=== PATIENT | female | born 2000 | race Caucasian/White ===

== ENCOUNTER 2021-08-31 00:12 | Emergency (ER) | payer OTHER ==
[~2021-08-31] VITALS: Ht 172.7 cm; Wt 59.0 kg
[2021-08-31 00:15] VITALS: BP 117/67
[2021-08-31] MEDS ORDERED: ACETAMINOPHEN EXTRA STRENGTH 500 MG TAB PO ONE (00:50)
[2021-08-31] MEDS ORDERED: BACITRACIN OINT 500 UNITS/GM PKT TP ONE (00:50)
[2021-08-31] MEDS ORDERED: LIDOCAINE 2% 1000 MG/50 ML VIAL INJ ONE (00:50)
--- NOTE | 2021-08-31 00:50 | NUR ---
PT RECIEVED 3 STICHES TO 3RD DIGIT R HAND. DRESSING APPLIED TO HAND . AWAITING DC PAPER WORK
[2021-08-31] MEDS ORDERED: LIDOCAINE MPF 1% 5 ML ONE (00:53)
[2021-08-31 01:30] VITALS: BP 117/67
--- NOTE | 2021-08-31 01:30 | NUR ---
Patient discharged with v/s stable. Written and verbal after care instructions given and explained. Patient verbalized understanding. Ambulatory with steady gait. All questions addressed prior to discharge. Advised to follow up with PMD.
== END 2021-08-31 01:30 | disposition home or self-care (01) ==
LOC: MED 00:12
DX: S61.212A Laceration without foreign body of right middle finger without damage to nail, initial encounter (principal); D64.9 Anemia, unspecified; Z23 Encounter for immunization; W25.XXXA Contact with sharp glass, initial encounter; Y93.89 Activity, other specified; Y92.89 Other specified places as the place of occurrence of the external cause; Y99.8 Other external cause status
CPT/HCPCS: 12001; 90471; 90715; 99283; J2001